=== PATIENT | female | born 1940 | race Caucasian/White ===

== ENCOUNTER 2024-02-08 14:58 | Inpatient (IN) ==
[2024-02-08] MEDS ORDERED: IOPAMIDOL 100 ML BOTTLE IV ONE (14:59)
[2024-02-08] MEDS: 0.9 % SODIUM CHLORIDE 500 ML IV ONE ×2 (15:33→17:02)
[2024-02-08 15:42] LABS: Basophils # (Auto) 0.06 K/mcL (0.00-0.30); Basophils % (Auto) 0.8 % (0.0-2.0); Eosinophils # (Auto) 0.25 K/mcL (0.00-0.70); Eosinophils % (Auto) 3.3 % (0.0-7.0); Hematocrit 38.6 % (34.1-44.9); Hemoglobin 13.2 g/dL (11.2-15.7); Lymphocytes # (Auto) 1.61 K/mcL (1.50-4.80); Mean Cell Volume 97.5 fL (80.0-100.0); Mean Corpuscular HGB Conc 34.2 g/dL (31.0-36.0); Mean Platelet Volume 10.3 fL (8.8-12.5); Monocytes # (Auto) 0.78 K/mcL (0.10-0.90); Monocytes % (Auto) 10.2 % (1.0-12.0); Neutrophils % (Auto) 64.6 % (38.0-78.0); Platelet Count 306 K/mcL (140-440); RBC 3.96 M/mcL (3.59-5.38); Red Cell Distribution Width 11.9 % (11.5-14.5); WBC 7.7 K/mcL (4.5-11.0)
[2024-02-08 16:12] LABS: ALT/SGPT < 5 U/L (<40); AST/SGOT 19 U/L (<32); Albumin 3.6 gm/dL (3.2-5.2); Albumin/Globulin Ratio 1.3 (1.0-2.3); Alkaline Phosphatase 85 U/L (39-117); Bilirubin,Total 0.6 mg/dL (0.1-1.0); Blood Urea Nitrogen 20 mg/dL (8-23); Calcium 13.3 mg/dL (8.6-10.4); Carbon Dioxide 28 mmol/L (22-30); Chloride 101 mmol/L (96-108); Globulin 2.8 gm/dL (2.2-3.7); Glomerular Filtration Rate 37; Glucose 104 mg/dL (70-105)
[2024-02-08] MEDS: POTASSIUM CHLORIDE 20 MEQ TABLET PO ONE (17:22)
[2024-02-08 17:25] LABS: Appearance,Urine Slightly Cloudy (Clear); Bacteria,Urine Rare /hpf (0); Bilirubin,Urine Negative (Negative); Color,Urine Yellow; Culture Indicated,Urine Yes; Glucose,Urine (UA) Negative (Negative); Ketones,Urine Negative (Negative); Leukocyte Esterase,Urine Negative /uL (Negative); Nitrate,Urine Negative (Negative); Protein,Urine Negative (Negative); Specific Gravity,Urine 1.015 (1.000-1.035); Urine Blood Trace-intact ery/mcL (Negative); Urine RBC 0 /hpf (0-3); Urine Squamous Epithelial Cell 3 /hpf (0-4); Urine WBC 0 /hpf (0-4); Urobilinogen,Urine Normal
[2024-02-08] MEDS ORDERED: ACETAMINOPHEN 325 MG TABLET PO PRN (19:34)
[2024-02-08] MEDS ORDERED: IPRATROPIUM/ALBUTEROL 3 ML AMPUL.NEB NEB PRN (19:34)
[2024-02-08] MEDS ORDERED: ONDANSETRON 4 MG/2 ML VIAL IV PRN (19:34)
[2024-02-08] MEDS: 0.9 % SODIUM CHLORIDE 1,000 ML IV SCH (19:55)
[2024-02-08] MEDS: SENNOSIDES 1 TABLET PO SCH (22:27)
[2024-02-08] MEDS: 0.9 % SODIUM CHLORIDE 10 ML SYRINGE IV SCH (22:28)
[2024-02-08] MEDS: DOCUSATE SODIUM 100 MG CAPSULE PO SCH (22:28)
[2024-02-08] MEDS: HEPARIN 5,000 UNIT/ML VIAL SQ SCH (22:28)
[2024-02-09 07:12] LABS: ALT/SGPT < 5 U/L (<40); AST/SGOT 18 U/L (<32); Albumin 3.2 gm/dL (3.2-5.2); Albumin/Globulin Ratio 1.4 (1.0-2.3); Alkaline Phosphatase 72 U/L (39-117); Bilirubin,Total 0.4 mg/dL (0.1-1.0); Blood Urea Nitrogen 15 mg/dL (8-23); Carbon Dioxide 24 mmol/L (22-30); Chloride 108 mmol/L (96-108); Globulin 2.3 gm/dL (2.2-3.7); Glomerular Filtration Rate 51; Glucose 95 mg/dL (70-105)
[2024-02-09] MEDS: POTASSIUM CHLORIDE 20 MEQ TABLET PO SCH (08:07)
[2024-02-09 09:24] LABS: Basophils % (Auto) 1.5 % (0.0-2.0); Eosinophils % (Auto) 4.5 % (0.0-7.0); Hematocrit 33.4 % (34.1-44.9); Hemoglobin 11.1 g/dL (11.2-15.7); Lymphocytes # (Auto) 1.45 K/mcL (1.50-4.80); Mean Cell Volume 99.1 fL (80.0-100.0); Mean Corpuscular HGB Conc 33.2 g/dL (31.0-36.0); Mean Platelet Volume 11.1 fL (8.8-12.5); Monocytes # (Auto) 0.66 K/mcL (0.10-0.90); Neutrophils % (Auto) 61.8 % (38.0-78.0); Platelet Count 276 K/mcL (140-440); RBC 3.37 M/mcL (3.59-5.38); Red Cell Distribution Width 11.8 % (11.5-14.5); WBC 6.6 K/mcL (4.5-11.0)
[2024-02-09] MEDS: MAGNESIUM SULFATE 1 GM/100 ML BAG IV SCH (10:41)
[2024-02-09] MEDS: CALCITONIN 400 UNIT/2 ML VIAL IM SCH (11:55)
[2024-02-09] MEDS: ZOLEDRONIC ACID 4 MG in 0.9 % SODIUM CHLORIDE 100 ML IV SCH (11:58)
[2024-02-09] MEDS ORDERED: ZOLEDRONIC ACID/WATER 4 MG/100 ML BAG IV SCH (12:00)
[2024-02-09] MEDS: ZOLEDRONIC AC/MANNITOL/0.9NACL 4 MG/100 ML PIGGYBACK IV ONE (13:18)
[2024-02-09] MEDS: MAGNESIUM SULFATE 8.12 MEQ/2 ML VIAL IV ONE (13:18)
[2024-02-09] MEDS ORDERED: METOPROLOL TARTRATE 5 MG/5 ML VIAL IV PRN (14:06)
[2024-02-09] MEDS ORDERED: POLYETHYLENE GLYCOL 3350 17 GM PACKET PO PRN (14:07)
[2024-02-09] MEDS ORDERED: LACTULOSE 20 GM/30 ML ORAL.SOL PO PRN (14:08)
[2024-02-09] MEDS: POLYETHYLENE GLYCOL 3350 17 GM PACKET PO SCH (14:46)
[2024-02-09] MEDS ORDERED: chlordiazePOXIDE 25 MG CAPSULE PO PRN (15:38)
[2024-02-09] MEDS ORDERED: LORazepam 2 MG/ML VIAL IV PRN (15:39)
[2024-02-09] MEDS: FOLIC ACID 1 MG TABLET PO SCH (16:15)
[2024-02-09] MEDS: THIAMINE 100 MG in 0.9 % SODIUM CHLORIDE 50 ML IV SCH (16:47)
[2024-02-09] MEDS: LORazepam 2 MG/ML VIAL IV PRN (19:50)
[2024-02-09] MEDS: TAMSULOSIN 0.4 MG CAPSULE PO SCH (20:51)
[2024-02-09] MEDS: DILTIAZEM 240 MG CAP.XL.24H PO SCH (20:51)
[2024-02-09] MEDS: DABIGATRAN ETEXILATE 150 MG PO SCH (20:51)
[2024-02-10 08:09] LABS: ALT/SGPT < 5 U/L (<40); AST/SGOT 19 U/L (<32); Albumin 3.5 gm/dL (3.2-5.2); Albumin/Globulin Ratio 1.3 (1.0-2.3); Alkaline Phosphatase 78 U/L (39-117); Bilirubin,Direct < 0.2 mg/dL (0-0.3); Bilirubin,Total 0.4 mg/dL (0.1-1.0); Blood Urea Nitrogen 9 mg/dL (8-23); Calcium 9.4 mg/dL (8.6-10.4); Carbon Dioxide 19 mmol/L (22-30); Chloride 109 mmol/L (96-108); Globulin 2.6 gm/dL (2.2-3.7); Glomerular Filtration Rate 58; Glucose 90 mg/dL (70-105); Lactate Dehydrogenase 120 U/L (135-225); Triglycerides 60 mg/dL (<150); Uric Acid 6.1 mg/dL (2.5-8.0)
[2024-02-10] MEDS: THIAMINE 100 MG in 0.9 % SODIUM CHLORIDE 50 ML IV SCH (09:14)
[2024-02-10] MEDS: MAGNESIUM SULFATE 2 GM/50 ML BAG IV SCH (09:14)
[2024-02-10] MEDS: NEUTRA PHOS 1 PACKET PO SCH (09:56)
[2024-02-10] MEDS: MIRTAZAPINE 15 MG TABLET PO SCH (10:09)
[2024-02-10] MEDS: PHOSPHORUS 250 MG TABLET PO SCH (10:11)
[2024-02-10] MEDS: MULTIVIT,THER IRON,CA,FA & MIN 1 TABLET PO SCH (10:28)
[2024-02-10] MEDS: SODIUM PHOSPHATE 30 MMOL in DEXTROSE 5% IN WATER 500 ML IV SCH ×2 (11:02→21:08)
[2024-02-10] MEDS: cloNIDine HCL 0.1 MG TABLET PO PRN (13:58)
[2024-02-10] MEDS: cefTRIAXone 1 GM VIAL IV SCH (17:54)
[2024-02-11 06:46] LABS: ALT/SGPT < 5 U/L (<40); AST/SGOT 26 U/L (<32); Albumin 3.4 gm/dL (3.2-5.2); Albumin/Globulin Ratio 1.3 (1.0-2.3); Alkaline Phosphatase 77 U/L (39-117); Bilirubin,Direct < 0.2 mg/dL (0-0.3); Bilirubin,Total 0.3 mg/dL (0.1-1.0); Blood Urea Nitrogen 8 mg/dL (8-23); Calcium 7.8 mg/dL (8.6-10.4); Carbon Dioxide 20 mmol/L (22-30); Chloride 105 mmol/L (96-108); Globulin 2.6 gm/dL (2.2-3.7); Glomerular Filtration Rate 41; Glucose 90 mg/dL (70-105); Lactate Dehydrogenase 177 U/L (135-225); Phosphorous 6.5 mg/dL (2.5-4.5); Triglycerides 71 mg/dL (<150); Uric Acid 5.8 mg/dL (2.5-8.0)
[2024-02-11] MEDS: THIAMINE 100 MG TABLET PO SCH (09:12)
[2024-02-11] MEDS: MAGNESIUM SULFATE 2 GM/50 ML BAG IV ONE ×2 (11:03)
[2024-02-11] MEDS: ACETAMINOPHEN 650 MG/65 ML BAG IV PRN (11:56)
[2024-02-11] MEDS: OLANZapine 5 MG TABLET PO SCH (20:43)
[2024-02-12 06:00] LABS: ALT/SGPT < 5 U/L (<40); AST/SGOT 22 U/L (<32); Albumin 3.1 gm/dL (3.2-5.2); Albumin/Globulin Ratio 1.1 (1.0-2.3); Alkaline Phosphatase 70 U/L (39-117); Bilirubin,Direct < 0.2 mg/dL (0-0.3); Bilirubin,Total 0.3 mg/dL (0.1-1.0); Blood Urea Nitrogen 16 mg/dL (8-23); Calcium 7.4 mg/dL (8.6-10.4); Carbon Dioxide 19 mmol/L (22-30); Chloride 104 mmol/L (96-108); Globulin 2.7 gm/dL (2.2-3.7); Glomerular Filtration Rate 27; Glucose 88 mg/dL (70-105); Lactate Dehydrogenase 167 U/L (135-225); Phosphorous 3.5 mg/dL (2.5-4.5); Triglycerides 67 mg/dL (<150); Uric Acid 6.4 mg/dL (2.5-8.0)
[2024-02-12] MEDS: DILTIAZEM 240 MG CAP.XL.24H PO SCH (13:05)
[2024-02-12] MEDS: POTASSIUM CHLORIDE 20 MEQ TABLET PO ONE ×2 (13:06→13:29)
[2024-02-13 06:53] LABS: ALT/SGPT < 5 U/L (<40); AST/SGOT 18 U/L (<32); Albumin/Globulin Ratio 1.2 (1.0-2.3); Alkaline Phosphatase 62 U/L (39-117); Bilirubin,Direct < 0.2 mg/dL (0-0.3); Bilirubin,Total 0.2 mg/dL (0.1-1.0); Blood Urea Nitrogen 23 mg/dL (8-23); Calcium 7.5 mg/dL (8.6-10.4); Carbon Dioxide 20 mmol/L (22-30); Chloride 104 mmol/L (96-108); Globulin 2.5 gm/dL (2.2-3.7); Glomerular Filtration Rate 24; Glucose 106 mg/dL (70-105); Lactate Dehydrogenase 173 U/L (135-225); Phosphorous 1.8 mg/dL (2.5-4.5); Triglycerides 89 mg/dL (<150); Uric Acid 6.5 mg/dL (2.5-8.0)
[2024-02-13] MEDS: SODIUM BICARBONATE 650 MG TABLET PO SCH (08:44)
[2024-02-13] MEDS: NEUTRA PHOS 1 PACKET PO SCH (08:45)
[2024-02-13 09:54] LABS: Appearance,Urine Clear (Clear); Bilirubin,Urine Negative (Negative); Color,Urine Yellow; Culture Indicated,Urine No; Glucose,Urine (UA) Negative (Negative); Ketones,Urine Negative (Negative); Leukocyte Esterase,Urine Negative /uL (Negative); Nitrate,Urine Negative (Negative); Protein,Urine Negative (Negative); Specific Gravity,Urine 1.025 (1.000-1.035); Urine Blood Negative ery/mcL (Negative); Urobilinogen,Urine Normal
[2024-02-13] MEDS: 0.9 % SODIUM CHLORIDE 1,000 ML IV ONE (11:39)
[2024-02-14 07:52] LABS: Basophils # (Auto) 0.05 K/mcL (0.00-0.30); Basophils % (Auto) 0.8 % (0.0-2.0); Eosinophils # (Auto) 0.28 K/mcL (0.00-0.70); Eosinophils % (Auto) 4.6 % (0.0-7.0); Hemoglobin 10.7 g/dL (11.2-15.7); Lymphocytes # (Auto) 1.31 K/mcL (1.50-4.80); Lymphocytes % (Auto) 21.6 % (15.5-49.0); Mean Cell Volume 100.9 fL (80.0-100.0); Mean Corpuscular HGB Conc 33.4 g/dL (31.0-36.0); Mean Platelet Volume 10.5 fL (8.8-12.5); Monocytes # (Auto) 0.83 K/mcL (0.10-0.90); Monocytes % (Auto) 13.7 % (1.0-12.0); Neutrophils % (Auto) 59.1 % (38.0-78.0); Platelet Count 265 K/mcL (140-440); RBC 3.17 M/mcL (3.59-5.38); Red Cell Distribution Width 12.2 % (11.5-14.5); WBC 6.1 K/mcL (4.5-11.0)
[2024-02-14 09:27] LABS: AST/SGOT 15 U/L (<32); Albumin/Globulin Ratio 1.3 (1.0-2.3); Alkaline Phosphatase 57 U/L (39-117); Bilirubin,Direct < 0.2 mg/dL (0-0.3); Bilirubin,Total 0.2 mg/dL (0.1-1.0); Blood Urea Nitrogen 21 mg/dL (8-23); Calcium 7.1 mg/dL (8.6-10.4); Carbon Dioxide 20 mmol/L (22-30); Chloride 109 mmol/L (96-108); Globulin 2.4 gm/dL (2.2-3.7); Glomerular Filtration Rate 27; Glucose 95 mg/dL (70-105); Lactate Dehydrogenase 150 U/L (135-225); Phosphorous 1.9 mg/dL (2.5-4.5); Triglycerides 87 mg/dL (<150); Uric Acid 6.3 mg/dL (2.5-8.0)
[2024-02-14] MEDS: NEUTRA PHOS 1 PACKET PO SCH (09:49)
== END 2024-02-15 12:40 | DRG 71 ==
LOC: ED 14:58 → MEDSUR 19:33
PROVIDERS: ADMIT Internal Medicine; ATTEND Internal Medicine